=== PATIENT | female | born 1980 | race Caucasian/White ===

== ENCOUNTER 2023-03-16 07:39 | Outpatient (CLI) | payer OTHER ==
[2023-03-16 14:39] LABS: BASOPHILS # (AUTO) 0.1 10^3/uL (0.0-0.1); BASOPHILS % (AUTO) 0.7 %; EOSINOPHILS # (AUTO) 0.2 10^3/uL (0.0-0.7); HCT - HEMATOCRIT 41.8 % (37.0-47.0); HGB - HEMOGLOBIN 13.5 g/dL (12.0-16.0); LYMPHOCYTES # (AUTO) 1.7 10^3/uL (1.5-3.5); LYMPHOCYTES % (AUTO) 23.5 %; MEAN CORPUSCULAR HEMOGLOBIN 30.8 pg (27.0-31.0); MEAN CORPUSCULAR HGB CONC 32.3 g/dL (32.0-36.0); MEAN CORPUSCULAR VOLUME 95.4 fL (81.0-99.0); MEAN PLATELET VOLUME 10.3 fL (7.9-10.8); MONOCYTES # (AUTO) 0.5 10^3/uL (0.0-1.0); NEUTROPHILS # (AUTO) 4.6 10^3/uL (1.5-6.6); NEUTROPHILS % (AUTO) 65.5 %; PLT - PLATELET COUNT 321 10^3/uL (130-450); RED BLOOD COUNT 4.38 10^6/uL (4.20-5.40); RED CELL DISTRIBUTION WIDTH 12.3 % (12.0-15.0); WHITE BLOOD COUNT 7.1 x10^3/uL (4.8-10.8)
[2023-03-16 15:41] LABS: ALBUMIN 3.9 g/dL (3.2-5.5); ALBUMIN/GLOBULIN RATIO 1.3 (1.0-2.2); ALKALINE PHOSPHATASE 68 IU/L (42-121); ALT ALANINE AMINOTRANSFERASE 10 IU/L (10-60); AST ASPARTATE AMINOTRANSFERASE 18 IU/L (10-42); BILIRUBIN,TOTAL 0.6 mg/dL (0.2-1.0); BUN - BLOOD UREA NITROGEN 11 mg/dL (6-20); CALCIUM 9.1 mg/dL (8.5-10.3); CARBON DIOXIDE - CO2 27 mmol/L (21-32); CHLORIDE 104 mmol/L (101-111); CHOL/HDL RATIO 4.7 (<4.4); CHOLESTEROL 184 mg/dL; CREATININE 0.8 mg/dL (0.6-1.3); GFR - MDRD 79 (>89); GLUCOSE 106 mg/dL (74-104); HDL CHOLESTEROL 39 mg/dL; LDL CHOLESTEROL,CALCULATED 103 mg/dL; LDL/HDL RATIO 2.6 (<4.4); POTASSIUM 4.1 mmol/L (3.5-4.5); SODIUM 136 mmol/L (135-145); TOTAL PROTEIN 6.9 g/dL (6.4-8.9); TRIGLYCERIDES 209 mg/dL (48-352); VLDL CHOLESTEROL 42 mg/dL
[2023-03-16 16:07] LABS: THYROID STIMULATING HORMONE 3.43 uIU/mL (0.34-5.60)
[2023-03-16 20:24] LABS: ESTIMATED AVERAGE GLUCOSE 103 mg/dL (70-100); HEMOGLOBIN A1c% 5.2 % (4.27-6.07)
== END 2023-03-16 07:40 | disposition home or self-care (01) ==
LOC: LAB.S 07:39
PROVIDERS: ATTEND Physician Assistant Medical
DX: Z00.00 Encounter for general adult medical examination without abnormal findings (principal)
CPT/HCPCS: 36415; 80053; 80061; 83036; 83721; 84443; 85025

== ENCOUNTER 2023-08-15 07:54 | Outpatient (CLI) | payer OTHER | END 2023-08-15 07:55 | disposition home or self-care (01) | LOC: CAM 07:54 | PROVIDERS: ATTEND Physician Assistant Medical | DX: M79.672 Pain in left foot (principal); M25.551 Pain in right hip; G89.29 Other chronic pain; I10 Essential (primary) hypertension | CPT/HCPCS: 97810; 97811 ==

== ENCOUNTER 2023-08-22 14:57 | Outpatient (CLI) | payer OTHER | END 2023-08-22 14:58 | disposition home or self-care (01) | LOC: CAM 14:57 | PROVIDERS: ATTEND Physician Assistant Medical | DX: M79.672 Pain in left foot (principal); M25.551 Pain in right hip; I10 Essential (primary) hypertension | CPT/HCPCS: 97810; 97811 ==

== ENCOUNTER 2023-08-25 08:00 | Outpatient (CLI) | payer OTHER ==
[2023-08-26 00:15] LABS: CHLAMYDIA TRACHOMATIS DNA NEGATIVE (NEGATIVE); NEISSERIA GONORRHOEAE DNA NEGATIVE (NEGATIVE); TRICHOMONAS VAGINALIS DNA NEGATIVE (NEGATIVE)
== END 2023-08-25 23:59 | disposition home or self-care (01) ==
LOC: LAB.N 08:00
PROVIDERS: ATTEND Registered Nurse
DX: N89.8 Other specified noninflammatory disorders of vagina (principal)
CPT/HCPCS: 87491; 87591; 87661

== ENCOUNTER 2023-08-29 14:12 | Outpatient (CLI) | payer OTHER | END 2023-08-29 14:13 | disposition home or self-care (01) | LOC: CAM 14:12 | PROVIDERS: ATTEND Physician Assistant Medical | DX: M79.672 Pain in left foot (principal); M25.551 Pain in right hip; I10 Essential (primary) hypertension | CPT/HCPCS: 97810; 97811 ==

== ENCOUNTER 2023-08-30 21:05 | Outpatient (CLI) | payer OTHER ==
--- NOTE | 2023-08-31 11:30 | Ultrasound Report ---
PROCEDURE: Pelvic w/Transvaginal INDICATIONS: VAGINAL MASS TECHNIQUE: Real-time scanning was performed of the pelvic organs, with image documentation. Additional endovagi nal scanning was necessary due to incomplete visualization of the adnexal and endometrial structures by transabdominal scanning. COMPARISON: None. FINDINGS: Uterus: Uterus is anteverted and normal in size at 7.1 x 3.3 x 4.6 cm. The myometrium is heterogene ous, no discrete uterine fibroids are seen. The endometrium measures 10.8 mm in combined thickness. No endometrial mass or fluid is seen. Ovaries: The right ovary measures 2.2 x 1.4 x 2.0 cm, with a calculated ovarian volume of 3.2 cc. T he left ovary measures 4.2 x 1.9 x 2.6 cm, with a calculated ovarian volume of 10.7 cc. The ovaries have a normal sonographic appearance. Less than 12 follicles can be seen in each ovary. No adnexal masses are seen. No cystic lesions measuring greater than 3 cm. Other: No pathologic free abdominal or pelvic fluid. There is a heterogeneously isoechoic to hypoech oic and solid appearing lesion involving right side of angina measures 3.4 x 2.9 x 3.3 cm in size wit h internal cystic foci at and peripheral vascularity. IMPRESSION: 1. Right anterior vaginal heterogeneously hypoechoic solid mass with internal cystic areas measures 3 .4 x 2.9 x 3.3 cm concerning for benign or malignant soft tissue neoplasm suggest clinical correlatio n. 2. Normal-appearing uterus and bilateral ovaries. Reviewed by: Emanuel Yo MD on 08/31/2023 11:29 AM PDT Approved by: Emanuel Yo MD on 08/31/2023 11:29 AM PDT Station ID: [id number]
== END 2023-08-30 21:06 | disposition home or self-care (01) ==
LOC: DI 21:05
PROVIDERS: ATTEND Registered Nurse
DX: N89.8 Other specified noninflammatory disorders of vagina (principal)
CPT/HCPCS: 87491; 87591; 87661

== ENCOUNTER 2023-09-07 14:57 | Outpatient (CLI) | payer OTHER | END 2023-09-07 14:58 | disposition home or self-care (01) | LOC: CAM 14:57 | PROVIDERS: ATTEND Physician Assistant Medical | DX: M79.672 Pain in left foot (principal); M25.551 Pain in right hip; I10 Essential (primary) hypertension | CPT/HCPCS: 97810; 97811 ==

== ENCOUNTER 2023-09-07 16:34 | Outpatient (CLI) | payer OTHER | END 2023-09-07 16:35 | disposition home or self-care (01) | LOC: LAB 16:34 | PROVIDERS: ATTEND Registered Nurse | DX: N89.8 Other specified noninflammatory disorders of vagina (principal); Z11.3 Encounter for screening for infections with a predominantly sexual mode of transmission ==

== ENCOUNTER 2023-09-08 07:21 | Outpatient (CLI) | payer OTHER ==
[2023-09-09 05:12] LABS: HIV SCREEN 4TH GENERATION Non Reactive (Non Reactive)
[2023-09-09 06:10] LABS: HSV 2 IGG TYPE SPEC <0.91 index (0.00-0.90)
[2023-09-09 10:09] LABS: RPR Non Reactive (Non Reactive)
== END 2023-09-08 07:22 | disposition home or self-care (01) ==
LOC: LAB.S 07:21
PROVIDERS: ATTEND Registered Nurse
DX: N89.8 Other specified noninflammatory disorders of vagina (principal); Z11.3 Encounter for screening for infections with a predominantly sexual mode of transmission
CPT/HCPCS: 36415; 86592; 86695; 86696; 87389

== ENCOUNTER 2023-09-12 14:19 | Outpatient (CLI) | payer OTHER | END 2023-09-12 14:20 | disposition home or self-care (01) | LOC: CAM 14:19 | PROVIDERS: ATTEND Physician Assistant Medical | DX: M79.672 Pain in left foot (principal); M25.551 Pain in right hip; I10 Essential (primary) hypertension | CPT/HCPCS: 97810; 97811 ==

== ENCOUNTER 2023-09-27 08:00 | Outpatient (CLI) | payer OTHER | END 2023-09-27 23:59 | disposition home or self-care (01) | LOC: LAB.WC 08:00 | PROVIDERS: ATTEND Obstetrics & Gynecology | DX: N75.0 Cyst of Bartholin's gland (principal) | CPT/HCPCS: 87070; 87075 ==

== ENCOUNTER 2023-10-03 15:43 | Outpatient (CLI) | payer OTHER | END 2023-10-03 15:44 | disposition home or self-care (01) | LOC: CAM 15:43 | PROVIDERS: ATTEND Physician Assistant Medical | DX: M79.672 Pain in left foot (principal); M25.551 Pain in right hip; I10 Essential (primary) hypertension | CPT/HCPCS: 97810; 97811 ==

== ENCOUNTER 2023-10-10 14:57 | Outpatient (CLI) | payer OTHER | END 2023-10-10 14:58 | disposition home or self-care (01) | LOC: CAM 14:57 | PROVIDERS: ATTEND Physician Assistant Medical | DX: M79.672 Pain in left foot (principal); M25.551 Pain in right hip; I10 Essential (primary) hypertension | CPT/HCPCS: 97810; 97811 ==